=== PATIENT | male | born 1955 | race Caucasian/White ===

== ENCOUNTER → 2016-12-03 | Day surgery (SDC) | payer OTHER ==
[~2016-12-03] VITALS: Ht 177.8 cm; Wt 86.2 kg
[~2016-12-03] MED LIST: ASPIRIN EC81 M1 PO; CLOBETASOL PROP50 M1 TOP; FLOMAX0.4 M1 PO; FOLIC ACID1 M1 PO; HUMIRA PEN40 MG/0.8 SC; IBUPROFEN600 M1 PO; LIPITOR10 M1 PO; TREXALL10 M1; VITAMIN D31000 UNI1 PO
--- NOTE | 2016-12-03 12:32 | Operative Report ---
Operative/Inv Procedure Report Surgery Date: 12/03/16 Name of Procedure: Cystoscopy transurethral resection of bladder tumor Pre-Operative Diagnosis: Recurrent bladder tumors Post-Operative Diagnosis: Same Estimated Blood Loss: scant Surgeon/Research Editor: Myah ORDOÑEZ,CHRISTIANA Levi Anesthesia: general endotracheal tube Drains: 20 fr kenyon Specimens: Bladder tumor chips Complications: None Condition: Stable Operative Indication: This patient is undergoing transrectal resection of bladder tumor in the past. Pathology revealed low-grade, noninvasive tumor. On routine follow-up cystoscopy was noted to have 3 areas of recurrent bladder tumor and was advised to have these areas resected Operative/Procedure Note Note: The patient was taken to the cystoscopy room and identified. He is placed in supine position on the cystoscopy table in a timeout was executed appropriately with the patient awake. Gen. anesthesia was induced via an endotracheal tube. He was then placed in dorsolithotomy position and prepped and draped in usual fashion for cystoscopy. Surgical pause was executed appropriately. The 22 [place] cystoscope sheath was placed into the bladder under direct vision using the 30 lens. Anterior urethra was normal. The prostatic urethra was 2 half to 3 cm in length and partially obstructing. Upon entering the bladder cystoscopy was performed. The bladder was mildly trabeculated. It was a superficial appearing bladder tumor on the dome. There were 2 areas of raised, erythematous mucosa on the left lateral wall which were suspicious for recurrent bladder tumor. There were no other obvious lesions noted. The right and left ureteral orifices were normal in location and appearance. The bladder was left full and the cystoscope removed. A 26 [place] resectoscope sheath was placed in the bladder using obturator. The working element was inserted. First the tumor on the dome was resected. The 2 areas of suspicious mucosa on the left lateral wall was then resected as well. The Mathew evacuator was used to remove all bladder tumor chips from the bladder. The base of each resection area was then fulgurated. No significant bleeding was noted. The bladder was left full and the resectoscope removed. A 20 [place]ian two-way Kenyon was inserted. The patient tolerated the procedure well and as completion was taken to the recovery room in stable condition Findings: Superficial appearing recurrent bladder tumor in 3 locations Discharge Disposition: PACU
== END ==
LOC: STS 01:59
DX: C67.8 Malignant neoplasm of overlapping sites of bladder (principal); N32.89 Other specified disorders of bladder; Z86.73 Personal history of transient ischemic attack (TIA), and cerebral infarction without residual deficits; N40.0 Benign prostatic hyperplasia without lower urinary tract symptoms; Z87.891 Personal history of nicotine dependence; Z79.82 Long term (current) use of aspirin
CPT/HCPCS: 88307; J0690; J2250